=== PATIENT | male | born 1995 | race Caucasian/White ===

== ENCOUNTER 2020-03-17 07:15 | Emergency (ER) | payer OTHER, SELFPAY ==
[2020-03-17 07:18] VITALS: BP 125/70; PULSE 59; RESP 16; TEMP 36.3; O2SAT 99; BMI 21.4
[2020-03-17 07:21] VITALS: BP 107/77; PULSE 54; RESP 16; O2SAT 97
--- NOTE | 2020-03-17 07:27 | W.ED.HEATRA ---
HPI - Head Injury General: Chief complaint: Head Injury Stated complaint: fall Time Seen by Provider: 03/17/20 07:16 Source: patient Mode of arrival: ambulatory Limitations: no limitations History of Present Illness: HPI Narrative: Patient is a 24-year-old male who presents to ED today for evaluation following a head injury that occurred around 10 PM yesterday evening. Patient tells me he was stoned and listening to music when he accidentally tripped and fell backwards striking the posterior aspect of his scalp on a table. Patient does not believe he lost consciousness however states it did take a while before he came to and was very dizzy and did not recall all of the events leading up to him falling. He states in addition he was having trouble understanding the words to his music and could not figure out how to take his earphones off. Patient states he stayed up for approximately an hour and then went to sleep. He states he woke up this morning and felt like his pupils were not as reactive as normal thus prompting him to seek emergency evaluation. He complains of a mild headache. No neck pain. He has not had any vomiting or extreme lethargy. MD Complaint: head injury Onset (ago): hour(s) Mechanism of Injury: fall Place: home Loss of Consciousness: unsure Location of injury: occipital Severity: mild Radiation: none Other Injuries: none Associated symptoms: Reports no associated symptoms; Deny nausea, neck pain, vertigo or vomiting Review of Systems Const: Denies: fever(s), chills, body aches, fatigue or malaise Eyes: Denies: change in vision, blurry vision, photophobia, floaters or seeing flashes Card: Denies: chest pain Resp: Denies: dyspnea GI: Denies: nausea or vomiting Musc: Denies: neck pain, back pain, extremity pain, extremity swelling, joint pain or joint swelling Skin/Breast: Reports: other (no lacerations/abrasions present) Neuro: Reports: headache(s); Denies: numbness in extremities, weakness in extremities, sensory changes, lack of coordination, difficulty walking, frequent falls, dizziness, vertigo, Slurred speech present or difficulty communicating thoughts [facility] ED PFSH: Social History (Updated 03/17/20 @ 07:22 by Ryan Arteaga RN) Smoking and tobacco status: current every day smoker Alcohol intake: current Substance/Drug Use: current Substance/Drug use frequency: daily Substance/Drug use type: Marijuana Physical Exam Const: COMMON NORMALS: no acute distress, average body habitus, patient oriented x3, no limitations, healthy appearing, alert and well nourished ORIENTATION/CONSCIOUSNESS: Yes oriented to person, Yes oriented to place and Yes oriented to time HENMT: COMMON NORMALS: normocephalic and atraumatic HEAD & SCALP: normocephalic and atraumatic Eye: COMMON NORMALS: Equal, round and reactive pupils present and EOMs intact bilaterally GENERAL EYE: appearance normal, both eyes and all related structures PUPIL: Yes Equal, round and reactive pupils present Neck/C-Spine: COMMON NORMALS: full ROM CERVICAL SPINE: Yes cervical ROM normal, No Cervical spine tenderness and No Paracervical muscle tenderness Neuro: ANITA COMA SCALE: document GCS findings [place] coma scale eye opening: Spontaneous [place] coma scale verbal response: Orientated [place] coma scale motor response: Obey commands [place] coma scale total score: 15 COMMON NORMALS: patient oriented x3, CN's II-XII intact bilaterally, moves all extremities, no focal motor deficits, no sensory deficits noted and gait normal SENSORIUM/ORIENTATION: Yes alert, Yes oriented to person, Yes oriented to place and Yes oriented to time Skin: COMMON NORMALS: no rashes or lesions noted GENERAL SKIN EXAM: no rashes or lesions noted Course Vital Signs: Vital signs: Vital Signs Temperature 97.3 F L 03/17/20 07:18 Pulse Rate 54 L 03/17/20 07:21 Respiratory Rate 16 03/17/20 07:21 Blood Pressure 107/77 03/17/20 07:21 Pulse Oximetry 97 03/17/20 07:21 MDM - Head Injury Imaging Data^: CT Head: Radiologist's impression: [address] [address] [address] Scan Report Signed Patient: Jean Claude Strauss Unit #: [id number] : 1995 Age/Sex: 24 / M ADM Date: 03/17/20 Loc: ER Room/Bed: Attending Dr: Ordering Provider/Ordering MD: Pauline Chi Date of Service: 03/17/20 Procedure(s): CT head wo con* [id number] Accession Number(s): [id number] Report Number: [id number] WS: [id number] CT HEAD NONCONTRAST HISTORY: trauma/fall/struck head TECHNIQUE: Contiguous axial imaging performed through the brain in 2.5 mm imaging. Bone and soft tissue windows. Sagittal and coronal reformats reviewed. All CT scans at [facility] use at least one of these dose optimization techniques: automated exposure control; mA and/or kV adjustment per patient size (includes targeted exams where dose is matched to clinical indication); or iterative reconstruction. DLP: 809.28 mGy.cm COMPARISON: None available. No acute intracranial hemorrhage, midline shift or mass effect. No atrophy or prior infarcts or herniation. Ventricles: Normal size with no hydrocephalus. Paranasal sinuses: As visualized are clear. Mastoid air cells: Well pneumatized. Calvarium and scalp: No skull fracture. Small amount of soft tissue thickening and edema centered over the midline of the frontal bone. CT/CT head wo con* [id number] IMPRESSION: 1. No acute intracranial hemorrhage or edema. 2. Mild soft tissue thickening over the frontal bone. Dictated By: Joceline Noyola DO Signed By: Jocleine Noyola DO Signed Date/Time: 03/17/20808 DD/ 6 Discharge Plan Discharge Patient Disposition: Home Clinical Impression: Concussion without loss of consciousness Qualifiers: Encounter type: initial encounter Qualified Code(s): S06.0X0A - Concussion without loss of consciousness, initial encounter Condition: Stable Prescriptions: No Action No Known Home Medications RF: 0 Discharge Orders: Discharge Order (Routine); Ordered 03/17/20 Ordered By: Pauline Chi Patient Instructions: Concussion/Head Injury - Adult, Concussion (ED), Minor Head Injury (ED) Activity Restrictions/Additional Instructions: Please follow up with primary care in one week if symptoms persist. Coding Level of Care Code ED Snuff Box Finisher for Xu Paulino Exam Detailed
--- NOTE | 2020-03-17 07:31 | CT_ITS ---
WS: [id number] CT HEAD NONCONTRAST HISTORY: trauma/fall/struck head TECHNIQUE: Contiguous axial imaging performed through the brain in 2.5 mm imaging. Bone and soft tiss ue windows. Sagittal and coronal reformats reviewed. All CT scans at [facility] use at le ast one of these dose optimization techniques: automated exposure control; mA and/or kV adjustment pe r patient size (includes targeted exams where dose is matched to clinical indication); or iterative r econstruction. DLP: 809.28 mGy.cm COMPARISON: None available. No acute intracranial hemorrhage, midline shift or mass effect. No atrophy or prior infarcts or herniation. Ventricles: Normal size with no hydrocephalus. Paranasal sinuses: As visualized are clear. Mastoid air cells: Well pneumatized. Calvarium and scalp: No skull fracture. Small amount of soft tissue thickening and edema centered ove r the midline of the frontal bone. CT/CT head wo con* [id number] IMPRESSION: 1. No acute intracranial hemorrhage or edema. 2. Mild soft tissue thickening over the frontal bone.
[2020-03-17 08:31] VITALS: BP 103/67; PULSE 64; RESP 18; TEMP 36.4; O2SAT 99
== END 2020-03-17 08:38 | disposition home or self-care (01) ==
PROVIDERS: Emergency Provider Physician Assistant
DX: S06.0X0A Concussion without loss of consciousness, initial encounter (principal); F17.210 Nicotine dependence, cigarettes, uncomplicated; W01.190A Fall on same level from slipping, tripping and stumbling with subsequent striking against furniture, initial encounter
CPT/HCPCS: 12345; 70450; 99281; 99282

== ENCOUNTER 2021-09-05 15:13 | Outpatient (CLI) | payer OTHER, SELFPAY ==
--- NOTE | 2021-09-05 15:59 | XRR_ITS ---
PROCEDURE INFORMATION: Exam: XR Chest Exam date and time: 09/05/2021 4:09 PM Age: 26 years old Clinical indication: Screening examination. Regulated program monitoring. TECHNIQUE: Imaging protocol: XR of the chest. Views: 2 views. COMPARISON: No relevant prior studies available. FINDINGS: Lungs: No pulmonary consolidation. Pleural spaces: No pleural effusion. No pneumothorax. Heart/Mediastinum: The cardiac silhouette is unremarkable. No gross evidence of pneumomediastinum. Bones/joints: No gross fracture. XR/XR chest 2V* [id number] IMPRESSION: No acute cardiopulmonary abnormality identified.
== END 2021-09-05 15:14 | disposition home or self-care (01) ==
LOC: RAD 15:17
PROVIDERS: Visit Provider Preventive Medicine Occupational Medicine
DX: Z13.6 Encounter for screening for cardiovascular disorders (principal)
CPT/HCPCS: 71046

== ENCOUNTER 2022-06-04 16:50 | Outpatient (CLI) | payer OTHER, SELFPAY ==
--- NOTE | 2022-06-04 17:03 | XR_ITS ---
WS: [id number] Exam: XR chest 2V* [id number] Date/Time of Exam: 06/04/2022 5:08 PM Reason For Exam: WORK RELATED Comparison 09/05/2021. Findings: The lungs are clear and fully expanded. Costophrenic angles are sharp. No infiltrates. Bronchovascula r relief appears normal. Cardiac silhouette is unremarkable. Bony elements are intact. XR/XR chest 2V* [id number] IMPRESSION: Unremarkable chest radiograph.
== END 2022-06-04 16:51 | disposition home or self-care (01) ==
LOC: RAD 08-01 12:48
PROVIDERS: Visit Provider Preventive Medicine Occupational Medicine
DX: Z13.6 Encounter for screening for cardiovascular disorders (principal)
CPT/HCPCS: 71046

== ENCOUNTER 2024-10-12 12:15 | Outpatient (CLI) | payer OTHER, SELFPAY ==
[2024-10-12 13:38] LABS: Free T4 Free Thyroxine 1.29 ng/dL (0.82-1.77); Thyroid Stimulating Hormone 1.12 uIU/mL (0.27-4.20)
[2024-10-13 09:49] LABS: T3 Total 113 ng/dL (76-181)
== END 2024-10-12 12:16 | disposition home or self-care (01) ==
PROVIDERS: PCP Family Medicine; Visit Provider Internal Medicine
DX: I10 Essential (primary) hypertension (principal); E05.90 Thyrotoxicosis, unspecified without thyrotoxic crisis or storm
CPT/HCPCS: 36415; 83516; 84439; 84443; 84480; 86376; 86800

== ENCOUNTER 2025-01-27 15:45 | Outpatient (CLI) | payer OTHER, SELFPAY ==
[2025-01-27 20:35] LABS: Free T4 Free Thyroxine 1.50 ng/dL (0.82-1.77); Thyroid Stimulating Hormone 1.03 uIU/mL (0.27-4.20)
== END 2025-01-27 15:46 | disposition home or self-care (01) ==
PROVIDERS: PCP Family Medicine; Visit Provider Internal Medicine
DX: E05.90 Thyrotoxicosis, unspecified without thyrotoxic crisis or storm (principal)
CPT/HCPCS: 36415; 84439; 84443